=== PATIENT | female | born 1980 | race African-American/Black ===

== ENCOUNTER → 2018-11-11 | Outpatient (REF) | payer OTHER ==
[~2018-11-11] MED LIST: OMEP40CA2 PO
[2018-11-11 20:23] LABS: BASO % 0.5 % (0.0-1.0); EOS # 0.1 10^3/uL (0.0-0.50); EOS % 1.3 % (0.0-3.0); HEMATOCRIT 44.8 % (36.0-47.0); HEMOGLOBIN 14.9 g/dl (12.0-15.5); LYMPH # 1.7 10^3/uL (1.5-4.5); LYMPH % 21.1 % (24.0-44.0); MEAN CORPUSCULAR HEMOGLOBIN 32.1 pg (27.0-33.0); MEAN CORPUSCULAR HGB CONC 33.3 g/dl (32.0-36.5); MEAN CORPUSCULAR VOLUME 96.6 fl (80.0-96.0); MONO # 0.6 10^3/uL (0.0-0.8); MONO % 7.4 % (0.0-5.0); NEUTROPHILS # 5.4 10^3/uL (1.8-7.7); NEUTROPHILS % 69.4 % (36.0-66.0); PLATELET COUNT, AUTOMATED 228 10^3/uL (150-450); RED BLOOD COUNT 4.64 10^6/uL (4.00-5.40); WHITE BLOOD COUNT 7.8 10^3/uL (4.0-10.0)
[2018-11-11 20:24] LABS: ALBUMIN 3.5 GM/DL (3.2-5.2); ALT/SGPT 40 U/L (12-78); AMYLASE 21 U/L (25-115); BILIRUBIN,TOTAL 0.3 MG/DL (0.2-1.0); BLOOD UREA NITROGEN 10 MG/DL (7-18); CALCIUM LEVEL 8.5 MG/DL (8.5-10.1); CARBON DIOXIDE LEVEL 28 MEQ/L (21-32); CHLORIDE LEVEL 106 MEQ/L (98-107); CREATININE FOR GFR 0.84 MG/DL (0.55-1.30); GLOMERULAR FILTRATION RATE > 60.0 (>60); GLUCOSE, FASTING 85 MG/DL (70-100); LIPASE 96 U/L (73-393); POTASSIUM SERUM 3.6 MEQ/L (3.5-5.1); SODIUM LEVEL 141 MEQ/L (136-145); TOTAL PROTEIN 6.9 GM/DL (6.4-8.2)
== END ==
LOC: M SFHCLERA 16:06
PROVIDERS: ATTEND Physician Assistant
DX: J11.2 Influenza due to unidentified influenza virus with gastrointestinal manifestations (principal); J02.9 Acute pharyngitis, unspecified; R19.7 Diarrhea, unspecified

== ENCOUNTER 2018-11-12 11:59 | Emergency (ER) | payer OTHER ==
[~2018-11-12] VITALS: Ht 167.6 cm; Wt 83.5 kg
[2018-11-12 12:27] LABS: BASO % 0.3 % (0.0-1.0); EOS # 0.1 10^3/uL (0.0-0.50); EOS % 1.1 % (0.0-3.0); HEMATOCRIT 44.5 % (36.0-47.0); HEMOGLOBIN 15.2 g/dl (12.0-15.5); LYMPH # 1.2 10^3/uL (1.5-4.5); LYMPH % 19.1 % (24.0-44.0); MEAN CORPUSCULAR HEMOGLOBIN 31.4 pg (27.0-33.0); MEAN CORPUSCULAR HGB CONC 34.2 g/dl (32.0-36.5); MEAN CORPUSCULAR VOLUME 91.9 fl (80.0-96.0); MONO # 0.5 10^3/uL (0.0-0.8); MONO % 8.2 % (0.0-5.0); NEUTROPHILS # 4.4 10^3/uL (1.8-7.7); NEUTROPHILS % 71.1 % (36.0-66.0); PLATELET COUNT, AUTOMATED 231 10^3/uL (150-450); RED BLOOD COUNT 4.84 10^6/uL (4.00-5.40); WHITE BLOOD COUNT 6.2 10^3/uL (4.0-10.0)
[2018-11-12 12:58] LABS: ALBUMIN 3.6 GM/DL (3.2-5.2); ALT/SGPT 42 U/L (12-78); BILIRUBIN,DIRECT 0.2 MG/DL (0.0-0.2); BILIRUBIN,TOTAL 0.6 MG/DL (0.2-1.0); BLOOD UREA NITROGEN 9 MG/DL (7-18); CALCIUM LEVEL 8.8 MG/DL (8.5-10.1); CARBON DIOXIDE LEVEL 26 MEQ/L (21-32); CHLORIDE LEVEL 108 MEQ/L (98-107); CREATININE FOR GFR 0.82 MG/DL (0.55-1.30); GLOMERULAR FILTRATION RATE > 60.0 (>60); GLUCOSE, FASTING 123 MG/DL (70-100); LIPASE 94 U/L (73-393); POTASSIUM SERUM 3.7 MEQ/L (3.5-5.1); SODIUM LEVEL 143 MEQ/L (136-145); TOTAL PROTEIN 7.4 GM/DL (6.4-8.2)
[2018-11-12] MEDS ORDERED: ONDANSETRON 4 MG ORAL DISINTEGRATING TAB (Q0162 PER 1MG) PO ONE (13:30)
[2018-11-12 15:06] VITALS: BP 123/80
[2018-11-12] MEDS ORDERED: OMEP40CA2 PO (15:08)
--- NOTE | 2018-11-12 15:28 | REP ---
Abdomen flat upright PA chest three views History: Abdominal pain A small amount of air is present in the intestine. There are no air-fluid levels or dilated loops of intestine. There is no pneumoperitoneum. The lungs are clear. Impression: Nonspecific bowel gas pattern. Electronically Signed by Martín Ibarra MD 11/12/2018 03:19 P
== END 2018-11-12 15:16 | disposition home or self-care (01) ==
LOC: M ED 11:59
DX: K29.20 Alcoholic gastritis without bleeding (principal); E28.2 Polycystic ovarian syndrome; K21.9 Gastro-esophageal reflux disease without esophagitis; Z79.899 Other long term (current) drug therapy; F17.210 Nicotine dependence, cigarettes, uncomplicated
CPT/HCPCS: 36415; 74021; 80048; 80076; 83690; 84702; 85025; 99283; Q0162

== ENCOUNTER → 2020-05-25 | Outpatient (CLI) | payer OTHER ==
[~2020-05-25] MED LIST changes: -OMEP40CA2 PO; +OMEP40CA97 PO
--- NOTE | 2020-05-25 15:53 | REPVR ---
PROCEDURE INFORMATION: Exam: MR Lumbar Spine Without Contrast. Exam date and time: 05/25/2020 1:54 PM Age: 40 years old Clinical indication: Low back pain. TECHNIQUE: Imaging protocol: Multiplanar magnetic resonance images of the lumbar spine without intravenous contrast. COMPARISON: No relevant prior studies available. FINDINGS: Vertebrae: Unremarkable. Spinal cord: Normal signal. No cord compression. L1-L2: There is disc space narrowing and desiccation. There are moderate degenerative end plate changes at this level. There is mild disc bulging. There is mild bilateral neuroforaminal narrowing. L2-L3: There is mild disc bulging. There is facet arthropathy and ligamentum flavum hypertrophy. L3-L4: There is minimal retrolisthesis at L3/4. There is mild disc bulging. There is a superimposed right foraminal disc herniation. There is moderate/severe right-sided neuroforaminal narrowing with compromise of the exiting right L3 nerve root. L4-L5: There is degenerative disc disease including disc space narrowing and dessication. There is mild disc bulging. Disc bulging extends into both neural foramen causing mild bilateral neural foraminal narrowing. There is facet arthropathy and ligamentum flavum hypertrophy. There is mild spinal canal stenosis. L5-S1: No significant disc disease. No significant spinal canal stenosis. No neural foraminal stenosis. Soft tissues: Unremarkable. IMPRESSION: Right foraminal disc herniation at L3/4. Please see details above. Electronically signed by: Blaine Doll On 05/25/2020 15:53:28 PM
== END ==
LOC: M RAD 13:51
PROVIDERS: ATTEND Pain Medicine Interventional Pain Medicine
DX: M51.26 Other intervertebral disc displacement, lumbar region (principal); M51.37 Other intervertebral disc degeneration, lumbosacral region

== ENCOUNTER → 2021-05-08 | Outpatient (CLI) | payer OTHER ==
[~2021-05-08] MED LIST changes: +OMEP40CA4 PO; -OMEP40CA97 PO
== END ==
LOC: M PAIN 08:30
PROVIDERS: ATTEND Anesthesiology
DX: M54.50 Low back pain, unspecified (principal); G89.29 Other chronic pain; F17.210 Nicotine dependence, cigarettes, uncomplicated; Z79.899 Other long term (current) drug therapy

== ENCOUNTER 2021-05-20 10:38 | Emergency (ER) | payer OTHER ==
[~2021-05-20] VITALS: Ht 167.6 cm; Wt 87.9 kg
--- OUTSIDE RECORDS SUMMARY | 2021-05-20 10:45 | CCD ---
Author Author [employer] Organization [employer] Address Unknown Phone Unavailable Care Team Providers Care Machine Iii Coremaker Name Role Phone ScottEliana calhouna Unavailable PROBLEMS Type Condition ICD9-CM Code ILL35-PF Code Onset Dates Condition S tatus W/U Status Risk SNOMED Code Notes Problem Other chronic pain G89.29 Active confirmed 8 [id number] ALLERGIES No Known Allergies ENCOUNTERS from 1981 to 2021-05-14 Encounter Location Date Provider Diagnosis [facility] [address] [phone] [place] [address] May, Chandrika Chavez IMMUNIZATIONS Vaccine Route Administration Date Status Influenza 6mo & up Fluzone Unknown October 31, 2016 Other s Influenza 6mo & up Fluzone Unknown Jul 05, 2015 Other s SOCIAL HISTORY Tobacco Use: Social History Observation Description Date Details (start date - stop date) Current Smoker Sex Assigned At : Social History Observation Description Sex Assigned At Unknown Tobacco Use: Question Answer Notes Are you a: current smoker Patient counseled on the dangers of tobacco use and urged to quit: 04/30/2021 How many cigarettes a day do you smoke? 6-10 Are you interested in quitting? Thinking about quitting REASON FOR REFERRAL No Information VITAL SIGNS No information MEDICATIONS Medication SIG (Take, Route, Frequency, Duration) Notes Start Da te End Date Status Cyclobenzaprine HCl 5 MG 1 tablet at bedtime as neede d Orally Once a day for 30 day(s) Not-Taking Provera 10 MG 1 tablet with food Orally Once a day for 30 day(s) Not-Taking Multi For Her - 1 cap Orally every 4 hours as needed Active Phentermine HCl 37.5 MG 1 capsule Orally Once a day Not-Taking hydrOXYzine HCl 10 MG as directed Orally Not-Taking Gabapentin 100 MG 1 capsule Orally Once a day for 30 day(s) Not-Taking Zofran ODT 4 MG 1 tablet on the tongue and a llow to dissolve Orally every 8 hrs prn for 4 days Nov, Unknown Ibuprofen 800 MG 1 tablet Orally four times daily take wi th food for 30 day(s) Mar, Unknown Amoxicillin 875 MG 1 tablet Orally every 12 hrs for 10 day(s) October, Unknown traMADol HCl 50 MG 1 tablet as needed Orally Once a day Not-Taking PROCEDURES No Information RESULTS No Results REASON FOR VISIT physical therapy referral MEDICAL (GENERAL) HISTORY Type Description Date Medical History DDD Medical History Tobacco user Medical History Polycystic Ovary Syndrome Medical History Female Infertility of Anovylatory origin Medical History Chronic Pain Syndrome Medical History Abnormal Liver Function test Medical History Obestity Surgical History No Surgical history information Hospitalization History Kidney infection age 6 Goals Section No Information Health Concerns No Information MEDICAL EQUIPMENT No Information MENTAL STATUS No Information FUNCTIONAL STATUS No Information ASSESSMENTS No Information PLAN OF TREATMENT Next Appt Details Provider Name:Norman Medina, 2021-07-31 11:15:00 AM, [address], , [place], [address], Insurance Providers Payer Name Payer Address Payer Phone Insured Name Patient Relati onship to Insured Coverage Start Date Coverage End Date [facility] COMMUNITY PLAN [facility] [address] [facility] [phone] SUDHIR FOSTER self
--- OUTSIDE RECORDS SUMMARY | 2021-05-20 10:45 | CCD ---
Author Author [employer] Organization [employer] Address Unknown Phone Unavailable Care Team Providers Care Network Strategist Name Role Phone ScottEliana calhouna Unavailable PROBLEMS Type Condition ICD9-CM Code [id number] Code Onset Dates Condition S tatus W/U Status Risk SNOMED Code Notes Problem Other chronic pain G89.29 Active confirmed 8 [id number] ALLERGIES No Known Allergies ENCOUNTERS from 1981 to 2021-05-09 Encounter Location Date Provider Diagnosis [facility] [address] [phone] [place] [address] May, Chandrika Chavez IMMUNIZATIONS Vaccine Route Administration [...] Information RESULTS No Results REASON FOR VISIT Doctor to Doctor Agreement MEDICAL (GENERAL) HISTORY Type Description Date Medical [...] Provider Name:Norman Medina, 2021-07-31 11:15:00 AM, [address], , [place], [address], Insurance Providers Payer Name Payer Address Payer Phone Insured Name Patient Relati onship to Insured Coverage Start Date Coverage End Date [facility] COMMUNITY PLAN [facility] [address] [facility] [phone] SUDHIR FOSTER self
--- OUTSIDE RECORDS SUMMARY | 2021-05-20 10:45 | CCD ---
Author Author [employer] Organization [employer] Address Unknown Phone Unavailable Care Team Providers Care Chiller Hand Name Role Phone ScottEliana calhouna Unavailable PROBLEMS Type Condition ICD9-CM Code CRW52-NP Code Onset Dates Condition S tatus W/U Status Risk SNOMED Code Notes Problem Other chronic pain G89.29 Active confirmed 8 [id number] ALLERGIES No Known Allergies ENCOUNTERS from 1981 to 2021-05-10 Encounter Location Date Provider Diagnosis [facility] [address] [phone] [place] [address] May, Chandrika Chavez IMMUNIZATIONS Vaccine Route Administration [...] Information RESULTS No Results REASON FOR VISIT Physical therapy MEDICAL (GENERAL) HISTORY Type Description Date Medical [...] Provider Name:Norman Medina, 2021-07-31 11:15:00 AM, [address], , [place], [address], Insurance Providers Payer Name Payer Address Payer Phone Insured Name Patient Relati onship to Insured Coverage Start Date Coverage End Date [facility] COMMUNITY PLAN [facility] [address] [facility] [phone] SUDHIR FOSTER self
--- OUTSIDE RECORDS SUMMARY | 2021-05-20 10:46 | CCD ---
Author Author [facility] Organization [facility] Address Unknown Phone Unavailable Care Team Providers Care Inventory Clerk Name Role Phone Nathalie Mueller MD Unavailable Unavailable Nathalie Mueller MD Unavailable Unavailable Nathalie Mueller MD Unavailable Unavailable Nathalie Mueller MD Unavailable Unavailable Nathalie Mueller MD Unavailable Unavailable Nathalie Mueller MD Unavailable Unavailable Nathalie Mueller MD Unavailable Unavailable Nathalie Mueller MD Unavailable Unavailable Nathalie Mueller MD Unavailable Unavailable Nathalie Mueller MD Unavailable Unavailable Nathalie Mueller MD Unavailable Unavailable Nathalie Mueller MD Unavailable Unavailable Nathalie Mueller MD Unavailable Unavailable Nathalie Mueller MD Unavailable Unavailable Nathalie Mueller MD Unavailable Unavailable Nathalie Mueller MD Unavailable Unavailable Nathalie Mueller MD Unavailable Unavailable Nathalie Mueller MD Unavailable Unavailable Nathalie Mueller MD Unavailable Unavailable Nathalie Mueller MD Unavailable Unavailable Nathalie Mueller MD Unavailable Unavailable Nathalie Mueller MD Unavailable Unavailable Bolla, S Nteo BOND Unavailable Unavailable Bolla, S Neto BOND Unavailable Unavailable Bolla, S Neto BOND Unavailable Unavailable Bolla, S Neto BOND Unavailable Unavailable Bolla, S Neto BOND Unavailable Unavailable Bolla, S Neto BOND Unavailable Unavailable Bolla, S Neto BOND Unavailable Unavailable Bolla, S Neto BOND Unavailable Unavailable Bolla, S Neto BOND Unavailable Unavailable Bolla, S Neto BOND Unavailable Unavailable Bolla, S Neto BOND Unavailable Unavailable Bolla, S Neto BOND Unavailable Unavailable Bolla, S Neto BOND Unavailable Unavailable Bolla, S Neto BOND Unavailable Unavailable Bolla, S Neto BOND Unavailable Unavailable Bolla, S Neto BOND Unavailable Unavailable Bolla, S Neto BOND Unavailable Unavailable Bolla, S Neto BOND Unavailable Unavailable Bolla, S Neto BOND Unavailable Unavailable Bolla, S Neto BOND Unavailable Unavailable Bolla, S Neto BOND Unavailable Unavailable Bolla, S Neto OBND Unavailable Unavailable Bolla, S Neto BOND Unavailable Unavailable Bolla, S Neto BOND Unavailable Unavailable Bolla, S Neto BOND Unavailable Unavailable Bolla, S Neto BOND Unavailable Unavailable Bolla, S Neto BOND Unavailable Unavailable MARY MCKEON MD Unavailable Unavailable MARY MCKEON MD Unavailable Unavailable MARY MCKEON MD Unavailable Unavailable MARY MCKEON MD Unavailable Unavailable MARY MCKEON MD Unavailable Unavailable MARY MCKEON MD Unavailable Unavailable MARY MCKEON MD Unavailable Unavailable MARY MCKEON MD Unavailable Unavailable MARY MCKEON MD Unavailable Unavailable MARY MCKEON MD Unavailable Unavailable MARY MCKEON MD Unavailable Unavailable MARY MCKEON MD Unavailable Unavailable MARY MCKEON MD Unavailable Unavailable MARY MCKEON MD Unavailable Unavailable MARY MCKEON MD Unavailable Unavailable MARY MCKEON MD Unavailable Unavailable MARY MCKEON MD Unavailable Unavailable MARY MCKEON MD Unavailable Unavailable MARY MCKEON MD Unavailable Unavailable MARY MCKEON MD Unavailable Unavailable MARY MCKEON MD Unavailable Unavailable MARY MCKEON MD Unavailable Unavailable MARY MCKEON MD Unavailable Unavailable MARY MCKEON MD Unavailable Unavailable MARY MCKEON MD Unavailable Unavailable MARY MCKEON MD Unavailable Unavailable MARY MCKEON MD Unavailable Unavailable MARY MCKEON MD Unavailable Unavailable MCKEON, MARY MD Unavailable Unavailable MCKEON, MARY MD Unavailable Unavailable MCKEON, MARY MD Unavailable Unavailable MCKEON, MARY MD Unavailable Unavailable MCKEON, MARY MD Unavailable Unavailable MCKEON, MARY MD Unavailable Unavailable MCKEON, MARY MD Unavailable Unavailable MCKEON, MARY MD Unavailable Unavailable MCKEON, MARY MD Unavailable Unavailable MCKEON, MARY MD Unavailable Unavailable MCKEON, MARY MD Unavailable Unavailable MCKEON, MARY MD Unavailable Unavailable MCKEON, MARY MD Unavailable Unavailable MCKEON, MARY MD Unavailable Unavailable MCKEON, MARY MD Unavailable Unavailable MCKEON, MARY MD Unavailable Unavailable MCKEON, MARY MD Unavailable Unavailable MCKEON, MARY MD Unavailable Unavailable MCKEON, MARY MD Unavailable Unavailable MCKEON, MARY MD Unavailable Unavailable MCKEON, MARY MD Unavailable Unavailable MCKEON, MARY MD Unavailable Unavailable MCKENO, MARY MD Unavailable Unavailable MCKEON, MARY MD Unavailable Unavailable MCKEON, MARY MD Unavailable Unavailable MCKEON, MARY MD Unavailable Unavailable MCKEON, MARY MD Unavailable Unavailable MCKEON, MARY MD Unavailable Unavailable MCKEON, MARY MD Unavailable Unavailable MCKEON, MARY MD Unavailable Unavailable MCKEON, MARY MD Unavailable Unavailable MCKEON, MARY MD Unavailable Unavailable MCKEON, MARY MD Unavailable Unavailable MCKEON, MARY MD Unavailable Unavailable MCKEON, MARY MD Unavailable Unavailable MCEKON, MARY MD Unavailable Unavailable MCKEON, MARY MD Unavailable Unavailable MCKEON, MARY MD Unavailable Unavailable MCKEON, MARY MD Unavailable Unavailable MCKEON, MARY MD Unavailable Unavailable MCKEON, MARY MD Unavailable Unavailable MCKEON, MARY MD Unavailable Unavailable MCKEON, MARY MD Unavailable Unavailable MCKEON, MARY MD Unavailable Unavailable MCKEON, MARY MD Unavailable Unavailable MCKEON, MARY MD Unavailable Unavailable MCKEON, MARY MD Unavailable Unavailable MCKEON, MARY MD Unavailable Unavailable MCKEON, MARY MD Unavailable Unavailable MCKEON, MARY MD Unavailable Unavailable MCKEON, MARY MD Unavailable Unavailable MCKEON, MARY MD Unavailable Unavailable MCKEON, MARY MD Unavailable Unavailable MCKEON, MAYR MD Unavailable Unavailable MCKEON, MARY MD Unavailable Unavailable MCKEON, MARY MD Unavailable Unavailable MCKEON, MARY MD Unavailable Unavailable MCKEON, MARY MD Unavailable Unavailable MCKEON, MARY MD Unavailable Unavailable MCKEON, MARY MD Unavailable Unavailable MCKEON, MARY MD Unavailable Unavailable MCKEON, MARY MD Unavailable Unavailable MCKEON, MARY MD Unavailable Unavailable MCKEON, MARY MD Unavailable Unavailable MCKEON, MARY MD Unavailable Unavailable MCKEON, MARY MD Unavailable Unavailable MCKEON, MARY MD Unavailable Unavailable MCKEON, MARY MD Unavailable Unavailable MCKEON, MARY MD Unavailable Unavailable MCKEON, MARY MD Unavailable Unavailable MCKEON, MARY MD Unavailable Unavailable MCKEON, MARY MD Unavailable Unavailable MCKEON, MARY MD Unavailable Unavailable MCKEON, MARY MD Unavailable Unavailable MCKEON, MARY MD Unavailable Unavailable MCKEON, MARY MD Unavailable Unavailable MCKEON, MARY MD Unavailable Unavailable MCKEON, MARY MD Unavailable Unavailable MCKEON, MARY MD Unavailable Unavailable MCKEON, MARY MD Unavailable Unavailable MCKEON, MARY MD Unavailable Unavailable MCKEON, MARY MD Unavailable Unavailable MCKEON, MARY MD Unavailable Unavailable MCKEON, MARY MD Unavailable Unavailable MCKEON, MARY MD Unavailable Unavailable MCKEON, MARY MD Unavailable Unavailable MCKEON, MARY MD Unavailable Unavailable MCKEON, MARY MD Unavailable Unavailable MCKEON, MARY MD Unavailable Unavailable MCKEON, MARY MD Unavailable Unavailable MCKEON, MARY MD Unavailable Unavailable MCKEON, MARY MD Unavailable Unavailable MCKEON, MARY MD Unavailable Unavailable MCKEON, MARY MD Unavailable Unavailable MCKEON, MARY MD Unavailable Unavailable MCKEON, MARY MD Unavailable Unavailable MCKEON, MARY MD Unavailable Unavailable MCKEON, MARY MD Unavailable Unavailable MCKEON, MARY MD Unavailable Unavailable MCKEON, MARY MD Unavailable Unavailable MCKEON, MARY MD Unavailable Unavailable MCKEON, MARY MD Unavailable Unavailable MCKEON, MARY MD Unavailable Unavailable MCKEON, MARY MD Unavailable Unavailable MCKEON, MARY MD Unavailable Unavailable MCKEON, MARY MD Unavailable Unavailable MCKEON, MARY MD Unavailable Unavailable MCKEON, MARY MD Unavailable Unavailable MCKEON, MARY MD Unavailable Unavailable MCKEON, MARY MD Unavailable Unavailable MCKEON, MARY MD Unavailable Unavailable MCKEON, MARY MD Unavailable Unavailable MCKEON, MARY MD Unavailable Unavailable MCKEON, MARY MD Unavailable Unavailable MCKEON, MARY MD Unavailable Unavailable MCKEON, MARY MD Unavailable Unavailable Re-disclosure Warning The records that you are about to access may contain information from federally-assisted alcohol or drug abuse programs. If such information is present, then the following federally mandated warning applies: This information has been disclosed to you from records protected by federal confidentiality rules (42 CFR part 2). The federal rules prohibit you from making any further disclosure of this information unless further disclosure is expressly permitted by the written consent of the person to whom it pertains or as otherwise permitted by 42 CFR part 2. A general authorization for the release of medical or other information is NOT sufficient for this purpose. The Federal rules restrict any use of the information to criminally investigate or prosecute any alcohol or drug abuse patient.The records that you are about to access may contain highly sensitive health information, the redisclosure of which is protected by Article 27-F of the [facility] Public Health law. If you continue you may have access to information: Regarding HIV / AIDS; Provided by facilities licensed or operated by the [facility] Office of Mental Health; or Provided by the [facility] Office for People With Developmental Disabilities. If such information is present, then the following [facility] mandated warning applies: This information has been disclosed to you from confidential records which are protected by state law. State law prohibits you from making any further disclosure of this information without the specific written consent of the person to whom it pertains, or as otherwise permitted by law. Any unauthorized further disclosure in violation of state law may result in a fine or correction sentence or both. A general authorization for the release of medical or other information is NOT sufficient authorization for further disc losure. Allergies and Adverse Reactions Type Description Substance Reaction Status Data Source(s ) No Known Drug Allergies No Known Drug Allergies [facility] Family History Family Member Name Family Member Gender Family Member Status Date o f Status Description Data Source(s) Unknown Female Problem [facility] ([facility]) Encounters Encounter Providers Location Date Indications Data Source(s ) Unknown [address] [facility] [address] 05/10/2021 12:00:00 AM EST eCW1 ([facility]) [place] [address] [facility] [place] [address] 05/09/2021 12:00:00 AM EST eCW1 ([facility]) Unknown [address] [facility] [address] 05/09/2021 12:00:00 AM EST eCW1 ([facility]) Outpatient Attender: MARY MCKEON MDConsultant: MARY Oneill MD 07/25/2020 10:32:00 AM EST - 07/25/2020 10:32:00 AM EST [facility] Outpatient Attender: MARY MCKEON MD Family Practice 07/25/2020 0 9:20:00 AM EST [facility] ([facility] [place]) Outpatient Attender: MARY MCKEON MDConsultant: MARY Oneill MD 06/19/2020 03:15:00 PM EST - 06/19/2020 03:15:00 PM EST [facility] Neto Mueller MD: [id number] [address], [facility] [place] [address], Ph. Attender: Neto Mueller MD MA - [facility] - Main Office 04/16/2020 12:00:00 AM EST [facility] ([facility]) Medications Medication Brand Name Start Date Product Form Dose Route Admi nistrative Instructions Pharmacy Instructions Status Indications Reaction Description Data Source(s) 50 mg 11/22/2020 12:00:00 AM EDT tablet 30 TAKE ONE TABLET BY MOUTH TWICE A DAY NEEDED FOR PAIN MAXIMUM DAILY DOSE = 2 TAKE ONE TABLET BY MOUTH TWICE A DAY NEEDED FOR PAIN MAXIMUM DAILY DOSE = 2 SOLD: 11/22/2020 [facility] 50 mg 07/25/2020 12:00:00 AM EST tablet 30 TAKE ONE TABLET BY MOUTH TWICE A DAY NEEDED FOR PAIN - MAXIMUM DAILY DOSE = 2 TAKE ONE TABLET BY MOUTH TWICE A DAY NEEDED FOR PAIN - MAXIMUM DAILY DOSE = 2 SOLD: 08/01/2020 [facility] Cyclobenzaprine hydrochloride 5 MG Oral Tablet Cyclobenzapri ne HCL 07/25/2020 12:00:00 AM EST ORAL active M EDENT ([facility] [place]) Cyclobenzaprine hydrochloride 5 MG Oral Tablet CYCLOBENZAPRI NE HCL 07/25/2020 12:00:00 AM EST tablet 30 TAKE ONE TABLET BY MOUTH EVERY 8 HOURS NEEDED TAKE ONE TABLET BY MOUTH EVERY 8 HOURS NEEDED SOLD: 08/01/2020 [facility] 50 mg 06/19/2020 12:00:00 AM EST tablet 14 TAKE ONE TABLET BY MOUTH TWICE A DAY NEEDED FOR PAIN MAXIMUM DAILY DOSE = 2 TAKE ONE TABLET BY MOUTH TWICE A DAY NEEDED FOR PAIN MAXIMUM DAILY DOSE = 2 SOLD: 06/19/2020 [facility] 50 mg 06/19/2020 12:00:00 AM EST tablet 14 TAKE ONE TABLET BY MOUTH TWICE A DAY NEEDED FOR PAIN MAXIMUM DAILY DOSE = 2 TAKE ONE TABLET BY MOUTH TWICE A DAY NEEDED FOR PAIN MAXIMUM DAILY DOSE = 2 SOLD: 07/04/2020 [facility] gabapentin 100 MG Oral Capsule Gabapentin 06/19/2020 12:00:00 AM EST ORAL completed [facility] ([facility]) 100 mg 06/19/2020 12:00:00 AM EST capsule 180 TAKE ONE CAPSULE BY MOUTH EVERY 8 HOURS MAY GO UP TO TAKE THREE CAPSULES BY MOUTH THREE TIMES A DAY MAXIMUM DAILY DOSE = 6 TAKE ONE CAPSULE BY MOUTH EVERY 8 HOURS MAY GO UP TO TAKE THREE CAPSULES BY MOUTH THREE TIMES A DAY MAXIMUM DAILY DOSE = 6 SOLD: 06/19/2020 [facility] Hydroxyzine Hydrochloride 10 MG Oral Tab let hydroxyzine HCl 10 mg tablet Take 1 tablet every 6 hours by oral route as needed. hydroxyzine HCl 10 mg tablet Take 1 tablet every 6 hours by oral route as needed. 1 completed hydroxyzine hydrochloride 10 MG Oral Tablet [facility] ([facility]) Phentermine Hydrochloride 37.5 MG Oral C apsule phentermine 37.5 mg capsule Take 1 capsule every day by oral route. phentermine 37.5 mg capsule Take 1 capsu le every day by oral route. 1 capsule(s) complet ed phentermine hydrochloride 37.5 MG Oral Capsule [facility] ([facility]) Amoxicillin 500 MG Oral Capsule amoxicillin 500 mg cap krystyna amoxicillin 500 mg capsule completed amoxicillin 50 0 MG Oral Capsule [facility] ([facility]) Ibuprofen 600 MG Oral Tablet ibuprofen 600 mg tablet ibuprofen 6 00 mg tablet completed ibuprofen 600 MG Oral Tablet [facility] ([facility]) Escitalopram 10 MG Oral Tablet [Lexapro] Lexapro 10 mg tablet Take 1 tablet every day by oral route. Lexapro 10 mg tablet Take 1 tablet every day by oral route. 1 completed escitalopram 10 MG Oral Tablet [Lexapro] [facility] ([facility]) chlorhexidine gluconate 1.2 MG/ML Mouthw [place] chlorhexidine gluconate 0.12 % mouthwash chlorhexidine gluconate 0.12 % mouthwash completed chlorhexidine gluconate 1.2 MG/ML Mouthwash [facility] ([facility]) Insurance Providers Payer name Policy type / Coverage type Policy ID Covered constitution party ID Covered constitution party's relationship to anton Policy Anton Plan Information [employer] COMMUNITY PLAN [facility] [place] [id number] SP [id number] [facility] COMMUNTY PLAN [id number] [employer] COMMUNITY PLAN XIX [id number] 18 [id number] [facility] O [id number] S [id number] [employer] COMMUNITY PLAN [facility] [place] [id number] SP [id number] ANSI-Medicaid [id number] [employer] Commun[facility] Plan Medicaid [id number] Self [id number] [employer] Medicaid [id number] Self [id number] [employer] Medicaid [id number] Self [id number] HC COMMUNITY PLAN [id number] 18 [id number] [employer] Medicaid [id number] Self [id number] [employer] [facility] [employer] [employer] Medicaid [id number] [id number] Self [id number] [facility] [employer] [employer] Medicaid [id number] 0.3800.0 Self [id number] [facility] [employer] [employer] Medicaid [id number] 0.3800.0 Self [id number] [employer] Community Plan Medicaid [id number] Self [id number] [facility] Community Plan Medicaid [id number] Self [id number] [facility] Community Plan Medicaid 1680 Self [employer] AMERICHOICE XIX O [id number] 18 [id number] MEDICAID [id number] SP [id number] MEDICAID-PHYSICIAN [id number] [employer] AMERICHOICE XIX O [id number] 18 [id number] MEDICAID - CLINIC [id number] Problems, Conditions, and Diagnoses Code Display Name Description Problem Type Effective Dates Data Source(s) Z1389 Encounter for screening for other disord er Encounter for screening for other disorder Diagnosis 06/19/2020 03:15:00 PM [facility] N946 Dysmenorrhea, unspecified Dysmenorrhea, unspecified Di agnosis 06/19/2020 03:15:00 PM [facility] E282 Polycystic ovarian syndrome Polycystic ovarian syndrom e Diagnosis 06/19/2020 03:15:00 PM [facility] G894 Chronic pain syndrome Chronic pain syndrome Diagnosis 06/19/2020 03:15:00 PM [facility] 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 [place]) Surgeries/Procedures Procedure Description Date Indications Data Source(s) Brief Emotional/Behav Assessment W/ Scoring Doc Per Standard Inst 06/19/2020 12:00:00 AM EST [facility] ([facility]) MRI, lumbar spine, w/o contrast 04/16/2020 12:00:00 AM EST [facility] ([facility]) Results ID Date Data Source [id number] 07/25/2020 11:06:00 AM EST [facility] ([facility]) Name Value Range Interpretation Code Description Data [facility]isse rce(s) Supporting Document(s) C reactive protein [Mass/volume] in Serum or Plasma by High sensitivity method 1.67 mg/L 1.00-3.00 [facility] ([facility]) Is patient fasting? N Thyrotropin [Units/volume] in Serum or Plasma 1.21 uIU/mL 0.47-5.01 [facility] ([facility] [place]) Is patient fasting? N ID Date Data Source [id number] 07/25/2020 11:06:00 AM EST [facility] ([facility]) Name Value Range Interpretation Code Description Data [facility] rce(s) Supporting Document(s) Sed Rate Reenter 4 MED[facility] ([facility]) Is patient fasting? N Sed Rate 4 mm/hr 0-20 [facility] ([facility]) Is patient fasting? N ID Date Data Source [id number] 07/25/2020 11:06:00 AM EST [facility] ([facility]) Name Value Range Interpretation Code Description [facility](s) Comprehensive Metabo Laboratory test result [facility] ([facility] [place]) Is patient fasting? N Sodium 140 meq/L 134-153 [facility] ([facility]) Is patient fasting? N Chloride 102 meq/L 98-107 [facility] ([facility]) Is patient fasting? N Potassium 4.1 meq/L 3.6-5.0 [facility] ([facility]) Is patient fasting? N BUN 13 mg/dL 7-21 [facility] ([facility]) Is patient fasting? N Glucose 89 mg/dL 70-99 [facility] ([facility]) Is patient fasting? N Co2 25 meq/L 22-30 [facility] ([facility]) Is patient fasting? N Creatinine 0.6 mg/dL 0.7-1.5 Below low normal [facility] ( [facility] [place]) Is patient fasting? N BUN/Creat 22 8-27 [facility] ([facility]) Is patient fasting? N Albumin 4.5 g/dL 3.9-5.0 [facility] ([facility]) Is patient fasting? N Total Protein 7.6 g/dL 6.3-8.2 [facility] [place] Is patient fasting? N Globulin 3.1 GM/DL 2.4-3.2 [facility] ([facility]) Is patient fasting? N A/G Ratio 1.5 0.8-2.0 [facility] ([facility]) Is patient fasting? N Calcium 9.3 mg/dL 8.4-10.2 [facility] ([facility]) Is patient fasting? N Alkaline Phos 115 U/L 38-126 [facility] ([facility] [place]) Is patient fasting? N Total Bili Laboratory test result 0.2-1.3 [facility] ([facility] [place]) Is patient fasting? N Sgot/Ast 44 U/L 5-40 Above high normal [facility] [place] Is patient fasting? N SGPT/Alt 34 U/L 7-[address] [facility] [facility] ([facility]) Is patient fasting? N Anion Gap 13.0 mmol/L 8.0-16.0 [facility] ([facility]) Is patient fasting? N Non-Aa GFR Laboratory test result [facility] ([facility] [place]) Is patient fasting? N Age 40 [facility] Is patient fasting? N Afr Amer GFR Laboratory test result [facility] ([facility] [place]) Is patient fasting? N ID Date Data Source [id number] 07/25/2020 11:06:00 AM EST MED[facility] ([facility]) Name Value Range Interpretation Code Description Data [facility] rce(s) Supporting Document(s) CBC W/Automated Diff Laboratory test result [facility] ([facility] [place]) Is patient fasting? N WBC 7.5 10^3/uL 4.2-11.0 [facility] ([facility]) Is patient fasting? N RBC 4.58 10^6/uL 4.20-5.40 [facility] ([facility] [place]) Is patient fasting? N Hemoglobin 14.4 g/dL 12.0-16.0 [facility] ([facility]) Is patient fasting? N Hematocrit 42.9 % 37.0-47.0 [facility] ([facility]) Is patient fasting? N MCV 93.7 fL 81.0-101 [facility] ([facility]) Is patient fasting? N MCH 31.4 pg 27.0-34.0 [facility] ([facility]) Is patient fasting? N MCHC 33.6 g/dL 31.0-36.0 [facility] ([facility]) Is patient fasting? N RDW 13.2 % 11.5-14.5 [facility] ([facility]) Is patient fasting? N Platelets 261 10^3/uL 150-450 [facility] ([facility]) Is patient fasting? N Neut 64.7 % 37.0-80.0 [facility] ([facility]) Is patient fasting? N MPV 11.3 fL 7.4-10.4 Above high normal [facility] ([facility] [place]) Is patient fasting? N [place] 7.1 % 3.0-8.0 [facility] ([facility]) Is patient fasting? N Lymph 26.0 % 25.0-40.0 [facility] ([facility]) Is patient fasting? N Baso 0.5 % 0.0-2.5 [facility] ([facility]) Is patient fasting? N Eos 1.3 % 0.0-7.0 [facility] ([facility]) Is patient fasting? N %NRBC 0.0 % 0.0-0.0 [facility] ([facility]) Is patient fasting? N %Ig 0.4 % 0.0-0.0 Above high normal [facility] ([facility]) Is patient fasting? N #Neut 4.83 10^3/uL 2.00-6.90 [facility] ([facility] [place]) Is patient fasting? N #Lymph 1.94 10^3/uL 0.60-3.40 [facility] ([facility] [place]) Is patient fasting? N #[place] 0.53 10^3/uL 0.00-0.90 [facility] ([facility] [place]) Is patient fasting? N #Eos 0.10 10^3/uL 0.00-0.70 [facility] ([facility] [place]) Is patient fasting? N #Ig 0.03 10^3/uL 0.00-0.10 [facility] [facility], [place]) Is patient fasting? N #Baso 0.04 10^3/uL 0.00-0.20 MED[facility] ([facility] [place]) Is patient fasting? N #NRBC 0.00 10^3/uL 0.00-0.00 [facility] ([facility] [place]) Is patient fasting? N Manual Diff Laboratory test result M EDENT ([facility] [place]) Is patient fasting? N RBC Morph Laboratory test result [facility] ([facility] [place]) Is patient fasting? N ID Date Data Source [id number] 07/25/2020 08:42:00 PM EST [facility] Name Value Range Interpretation Code Description Data Charisse rce(s) Supporting Document(s) Erythrocyte sedimentation rate by Westergren method 4 mm/hr 0 - 20 [facility] SED RATE REENTER 4 [facility] ID Date Data Source [id number] 07/25/2020 11:06:00 AM EST MED[facility] ([facility]) Name Value Range Interpretation Code Description Data Charisse rce(s) Supporting Document(s) C reactive protein [Mass/volume] in Serum or Plasma by High sensitivity method Laboratory test result MED[facility] ([facility]) Erythrocyte sedimentation rate by Westergren method Laboratory test result [facility] ([facility] [place]) Thyrotropin [Units/volume] in Serum or Plasma Laboratory test result [facility] ([facility] [place]) ID Date Data Source [id number] 07/25/2020 02:38:00 PM EST [facility] Name Value Range Interpretation Code Description Data Charisse rce(s) Supporting Document(s) COMPREHENSIVE METABOLIC PANEL [facility] COMPREHENSIVE METABOLIC PANEL Sodium [Moles/volume] in Serum or Plasma 140 mEq/L 134 - 153 [facility] Potassium [Moles/volume] in Serum or Plasma 4.1 mEq/L 3.6 - 5.0 [facility] Chloride [Moles/volume] in Serum or Plasma 102 mEq/L 98 - 107 [facility] Carbon dioxide, total [Moles/volume] in Serum or Plasma 25 MEQ/L 22 - 30 [facility] Glucose [Mass/volume] in Serum or Plasma 89 MG/DL 70 - 99 [facility] BUN 13 MG/DL 7 - 21 [facility] Creatinine [Mass/volume] in Serum or Plasma 0.6 MG/DL 0.7 - 1.5 L [facility] BUN/CREAT 22 8 - 27 [facility] Protein [Mass/volume] in Serum or Plasma 7.6 G/DL 6.3 - 8.2 [facility] Albumin [Mass/volume] in Serum or Plasma 4.5 G/DL 3.9 - 5.0 [facility] Globulin [Mass/volume] in Serum by calculation 3.1 GM/DL 2.4 - 3.2 [facility] A/G RATIO 1.5 0.8 - 2.0 [facility] Calcium [Mass/volume] in Serum or Plasma 9.3 MG/DL 8.4 - 10.2 [facility] Bilirubin.total [Mass/volume] in Serum or Plasma <0.7 MG/DL 0.2 - 1.3 [facility] Alkaline phosphatase [Enzymatic activity/volume] in Serum or Plasma 115 U/L 38 - 126 [facility] Aspartate aminotransferase [Enzymatic activity/volume] in Serum or Plasma 44 U/L 5 - 40 H [facility] Alanine aminotransferase [Enzymatic activity/volume] in Seru m or Plasma 34 U/L 7 - 56 [facility] Anion gap 3 in Serum or Plasma 13.0 mmol/L 8.0 - 16.0 [facility] AGE 40 yrs [facility] NON-AA GFR >60 mL/min [facility] ital AFR AMER GFR >60 mL/min [facility] Male GFR In terprentation 20-49 yrs >60 mL/min Normal 50-59 yrs >56 mL/min Normal 60-69 yrs >49 mL/min Normal 70-79yrs >42 mL/min Normal 80 and above >35 mL/min Normal Female GFR Interpretation 20-39 yrs >60 mL/min Normal 40-49 yrs >58 mL/min Normal 50-59 yrs >51 mL/min Normal 60-69 yrs >45 mL/min Normal 70-79 yrs >39 mL/min Normal 80 and above >32 mL/min Normal ID Date Data Source [id number] 07/25/2020 02:34:00 PM EST [facility] Name Value Range Interpretation Code Description Data Charisse rce(s) Supporting Document(s) Thyrotropin [Units/volume] in Serum or Plasma by Detec tion limit <= 0.05 mIU/L 1.21 uIU/mL 0.47 - 5.01 [facility] ID Date Data Source [id number] 07/25/2020 02:32:00 PM EST [facility] Name Value Range Interpretation Code Description Data Charisse rce(s) Supporting Document(s) C reactive protein [Mass/volume] in Serum or Plasma by High sensitivity method 1.67 MG/L 1.00 - 3.00 [facility] CDC/[facility] HS-CRP CUT-OFF: RELATIVE RISK: <1.0 mg/L Low 1.0 - 3.0 mg/L Average >3.0 mg/L High Optimally, the average of HS-CRP results repeated two weeks apart should be used for risk assessment. ID Date Data Source [id number] 07/25/2020 01:46:00 PM EST [facility] Name Value Range Interpretation Code Description Data Charisse rce(s) Supporting Document(s) CBC W/AUTOMATED DIFF [facility] COMPLETE BLOOD COUNT Leukocytes [#/volume] in Blood by Automated count 7.5 10^3/uL 4.2 - 1 1.0 [facility] Erythrocytes [#/volume] in Blood by Automated count 4.58 10^6/uL 4. 20 - 5.40 [facility] Hemoglobin [Mass/volume] in Blood 14.4 g/dL 12.0 - 16.0 [facility] Hematocrit [Volume Fraction] of Blood by Automated count 42.9 % 3 7.0 - 47.0 [facility] Erythrocyte mean corpuscular volume [Entitic volume] by Auto mated count 93.7 fL 81.0 - 101 [facility] Erythrocyte mean corpuscular hemoglobin [Entitic mass] by Automated count 31.4 pg 27.0 - 34.0 [facility] Erythrocyte mean corpuscular hemoglobin concentration [Mass/volume] by Automated count 33.6 g/dL 31.0 - 36.0 [facility] Erythrocyte distribution width [Ratio] by Automated count 13.2 % 11.5 - 14.5 [facility] Platelets [#/volume] in Blood by Automated count 261 10^3/uL 150 - 45 0 [facility] Platelet mean volume [Entitic volume] in Blood by Automated count 11.3 fL 7.4 - 10.4 H [facility] Neutrophils/100 leukocytes in Blood by Automated count 64.7 % 37. 0 - 80.0 [facility] Lymphocytes/100 leukocytes in Blood by Manual count 26.0 % 25.0 - 40.0 [facility] Monocytes/100 leukocytes in Blood by Automated count 7.1 % 3.0 - 8.0 [facility] Eosinophils/100 leukocytes in Blood by Automated count 1.3 % 0.0 - 7.0 [facility] Basophils/100 leukocytes in Blood by Automated count 0.5 % 0.0 - 2.5 [facility] %IG 0.4 % 0.0 - 0.0 [facility] 0.0 % 0.0 - 0.0 [facility] al Neutrophils [#/volume] in Blood by Automated count 4.83 10^3/uL 2.00 - 6.90 [facility] Lymphocytes [#/volume] in Blood by Automated count 1.94 10^3/uL 0.60 - 3.40 [facility] Monocytes [#/volume] in Blood by Automated count 0.53 10^3/uL 0.00 - 0.90 [facility] Eosinophils [#/volume] in Blood by Automated count 0.10 10^3/uL 0.00 - 0.70 [facility] Basophils [#/volume] in Blood by Automated count 0.04 10^3/uL 0.00 - 0.20 [facility] #IG 0.03 10^3/uL 0.00 - 0.10 [facility] #NRBC 0.00 10^3/uL 0.00 - 0.00 [facility] MANUAL DIFF NOT INDICATED [facility] RBC MORPH NOT INDICATED [facility] Procedure Social History Code Duration Value Status Description Data Source(s ) Smoking 05/08/2021 12:00:00 AM EST Current Smoker completed [facility] Smoking 05/08/2021 12:00:00 AM EST Current Smoker completed Curre nt Smoker [facility] ([facility]) Smoking 05/08/2021 12:00:00 AM EST Current Smoker completed Curre nt Smoker eCW[facility] ([facility]) Vital Signs ID Date Data Source UNK Name Value Range Interpretation Code Description Data Source(s) Systolic blood pressure 132 mm[Hg] 132 mm[Hg] M [facility]ENT ([facility] [place]) Diastolic blood pressure 80 mm[Hg] 80 mm[Hg] [facility] ([facility] [place]) Heart rate 72 /min 72 /min [facility] Body temperature 98.0 [degF] 98.0 [degF] [facility] ([facility] [place]) Respiratory rate 16 /min 16 /min [facility] ( [facility] [place]) Oxygen saturation in Arterial blood by Pulse oximetry 98 % 98 % [facility] ([facility] [place]) Body weight 194.00 [lb_av] 194.00 [lb_av] MEDEN T ([facility] [place]) Body weight 87.998 kg 87.998 kg [facility] ([facility]) Body height 66 [in_i] 66 [in_i] [facility] ([facility]) 5'6" Body mass index (BMI) [Ratio] 31.3 kg/m2 31.3 k g/m2 [facility] ([facility] [place]) Body surface area Derived from formula 1.97 m2 1.97 m2 [facility] ([facility] [place]) Respiratory rate 18 /min 18 /min [facility] ( [facility] [place]) Oxygen saturation in Arterial blood by Pulse oximetry 98 % 98 % [facility] ([facility] [place]) Body weight 186.00 [lb_av] 186.00 [lb_av] MEDEN T ([facility] [place]) Systolic blood pressure 122 mm[Hg] 122 mm[Hg] M EDENT ([facility] [place]) Diastolic blood pressure 78 mm[Hg] 78 mm[Hg] [facility] ([facility] [place]) Heart rate 53 /min 53 /min [facility] ([facility]) Body temperature 99.0 [degF] 99.0 [degF] [facility] ([facility] [place]) Body weight 84.370 kg 84.370 kg [facility] ([facility]) Body height 66 [in_i] 66 [in_i] [facility] ([facility]) 5'6" Body mass index (BMI) [Ratio] 30.0 kg/m2 30.0 k g/m2 [facility] ([facility] [place]) Body surface area Derived from formula 1.94 m2 1.94 m[address] [facility] [place]) Diastolic blood pressure 70 mm[Hg] 70 mm[Hg] [facility] ([facility]) Body height 66 [in_i] 66 [in_i] [facility] ([facility]) Body mass index (BMI) [Ratio] 29.1 kg/m2 29.1 k g/m2 [facility] ([facility]) Systolic blood pressure 115 mm[Hg] 115 mm[Hg] A THENA ([facility]) Body weight 180 [lb_av] 180 [lb_av] [facility] ([facility]) Patient Treatment Plan of Care Planned Activity Planned Date Details Description Data Source (s) Phentermine Hydrochloride 37.5 MG Oral Capsule [facility] ([facility]) Escitalopram 10 MG Oral Tablet [Lexapro] [facility] ([facility]) Ibuprofen 600 MG Oral Tablet [facility] ([facility]) Hydroxyzine Hydrochloride 10 MG Oral Tablet [facility] ([facility]) chlorhexidine gluconate 1.2 MG/ML Mouthwash [facility] ([facility]) Amoxicillin 500 MG Oral Capsule [facility] ([facility])
--- NOTE | 2021-05-20 11:46 | REP ---
INDICATION: fall injury COMPARISON: None. TECHNIQUE: AP and lateral left humerus FINDINGS: The osseous structures and joint spaces are intact and normal. There is no evidence for acute fracture or dislocation. Surrounding soft tissues are unremarkable. No subcutaneous emphysema or radiodense foreign body. IMPRESSION: . No acute fracture or dislocation. <Electronically signed by Erik Williamson > 05/20/21 1956
--- OUTSIDE RECORDS SUMMARY | 2021-05-20 11:46 | CCD ---
Author Author [facility] Organization [facility] Address Unknown Phone Unavailable Care Team Providers Care Navigation Teacher Name Role Phone Nathalie Mueller MD Unavailable [...] Nathalie Mueller MD Unavailable Unavailable Bolla, S Neto BOND Unavailable [...] Unavailable MCKEON, MARY MD Unavailable Unavailable MCKEON, AMRY MD Unavailable Unavailable MCKEON, MARY MD Unavailable [...] is protected by Article 27-F of the [facility] Public Health law. If you continue you may have access to information: Regarding HIV / AIDS; Provided by facilities licensed or operated by the [facility] Office of Mental Health; or Provided by the [facility] Office for People With Developmental Disabilities. If such information is present, then the following [facility] mandated warning applies: This information has [...] law may result in a fine or senior living sentence or both. A general authorization for the release of medical or other information is NOT sufficient authorization for further disc losure. Allergies and Adverse Reactions Type Description Substance Reaction Status Data Source(s ) No Known Drug Allergies No Known Drug Allergies [facility] Family History Family Member Name Family Member Gender Family Member Status Date o f Status Description Data Source(s) Unknown Female Problem MEDENT ([facility]) Encounters Encounter Providers Location Date Indications Data Source(s ) [place] [address] [facility] [address] 05/10/2021 12:00:00 AM EST eCW1 ([facility]ly [facility]) [place] [address] [facility] [place] [address] 05/09/2021 12:00:00 AM EST eCW1 ([facility]) [place] [address] [facility] [address] 05/09/2021 12:00:00 AM EST eCW1 ([facility]) Outpatient Attender: MARY MCKEON MDConsultant: MARY Oneill MD 07/25/2020 10:32:00 AM EST - 07/25/2020 10:32:00 AM EST [facility] Outpatient Attender: MARY MCKEON MD Family Practice 07/25/2020 0 9:20:00 AM EST MEDENT ([facility]) Outpatient Attender: MARY MCKEON MDConsultant: MARY Oneill MD 06/19/2020 03:15:00 PM EST - 06/19/2020 03:15:00 PM EST [facility] Neto Mueller MD: [id number] [address], [facility] [place] [address], Ph. Attender: Neto Mueller MD [place] - [facility] - Main Office 04/16/2020 12:00:00 AM EST HENRY ([facility]) Medications Medication Brand Name Start Date Product [...] 12:00:00 AM EST ORAL active M EDENT ([facility]) Cyclobenzaprine hydrochloride 5 MG Oral Tablet CYCLOBENZAPRI [...] 06/19/2020 12:00:00 AM EST ORAL completed MEDENT ([facility]) 100 mg 06/19/2020 12:00:00 AM EST [...] 10 MG Oral Tablet HENRY ([facility]) Phentermine Hydrochloride 37.5 MG Oral C apsule phentermine 37.5 mg capsule Take 1 capsule every day by oral route. phentermine 37.5 mg capsule Take 1 capsu le every day by oral route. 1 capsule(s) complet ed phentermine hydrochloride 37.5 MG Oral Capsule HENRY ([facility]) Amoxicillin 500 MG Oral Capsule amoxicillin 500 mg cap krystyna amoxicillin 500 mg capsule completed amoxicillin 50 0 MG Oral Capsule HENRY ([facility]) Ibuprofen 600 MG Oral Tablet ibuprofen 600 mg tablet ibuprofen 6 00 mg tablet completed ibuprofen 600 MG Oral Tablet HENRY ([facility]) Escitalopram 10 MG Oral Tablet [Lexapro] Lexapro 10 mg tablet Take 1 tablet every day by oral route. Lexapro 10 mg tablet Take 1 tablet every day by oral route. 1 completed escitalopram 10 MG Oral Tablet [Lexapro] HENRY ([facility]) chlorhexidine gluconate 1.2 MG/ML Mouthw [place] chlorhexidine gluconate 0.12 % mouthwash chlorhexidine gluconate 0.12 % mouthwash completed chlorhexidine gluconate 1.2 MG/ML Mouthwash HENRY ([facility]) Insurance Providers Payer name Policy type / Coverage type Policy ID Covered constitution party ID Covered constitution party's relationship to anton Policy Anton Plan Information [employer] COMMUNITY PLAN [facility] [id number] SP [id number] [facility] COMMUNTY PLAN [id number] 18 [id number] [employer] COMMUNITY PLAN XIX [id number] 18 [id number] [facility] O [id number] S [id number] [employer] COMMUNITY PLAN [facility] [id number] SP [id number] ANSI-Medicaid [id number] [facility] Commun[facility] Plan Medicaid [id number] [id number] Self [id number] [facility] Medicaid [id number] 0.3800.0 Self [id number] [facility] Medicaid [id number] [id number] Self [id number] HC COMMUNITY PLAN [id number] 18 [id number] [facility] Medicaid [id number] 0.3800.0 Self [id number] [facility] Medicaid [id number] 0.3800.0 Self [id number] [facility] Medicaid [id number] 0.3800.0 Self [id number] [facility] Medicaid [id number] 0.3800.0 Self [id number] [facility] Community Plan Medicaid [id number] Self [id number] [facility] Community Plan Medicaid [id number] Self [id number] [facility] Community Plan Medicaid 1680 Self [employer] AMERICHOICE XIX O [id number] 18 [id number] MEDICAID [id number] SP [id number] MEDICAID-PHYSICIAN [id number] 18 B [id number] [employer] AMERICHOICE XIX O [id number] 18 [id number] MEDICAID - CLINIC [id number] Problems, Conditions, and Diagnoses Code Display Name Description Problem Type Effective Dates Data Source(s) Z1389 Encounter for screening for other disord er Encounter for screening for other disorder Diagnosis 06/19/2020 03:15:[address] [facility] N946 Dysmenorrhea, unspecified Dysmenorrhea, unspecified Di agnosis 06/19/2020 03:15:[address] [facility] E282 Polycystic ovarian syndrome Polycystic ovarian syndrom e Diagnosis 06/19/2020 03:15:[address] [facility] G894 Chronic pain syndrome Chronic pain syndrome Diagnosis 06/19/2020 03:15:[address] 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 G89.29 [id number] Other chronic pain Problem 05/09/2021 12:00: 00 AM EST eCW1 ([facility]) [id number] Polycystic ovary syndrome Polycystic ovary syndrome Pr oblem 06/19/2020 12:00:00 AM EST MEDENT ([facility]) Surgeries/Procedures Procedure Description Date Indications Data Source(s) Brief Emotional/Behav Assessment W/ Scoring Doc Per Standard Inst 06/19/2020 12:00:00 AM EST MEDENT ([facility]) MRI, lumbar spine, w/o contrast 04/16/2020 12:00:00 AM EST HENRY ([facility]) Results ID Date Data Source [id number] 07/25/2020 11:06:00 AM EST MEDENT ([facility]) Name Value Range Interpretation Code Description Data Charisse rce(s) Supporting Document(s) C reactive protein [Mass/volume] in Serum or Plasma by High sensitivity method 1.67 mg/L 1.00-3.00 MEDENT ([facility]) Is patient fasting? N Thyrotropin [Units/volume] in Serum or Plasma 1.21 uIU/mL 0.47-5.01 MEDENT ([facility]) Is patient fasting? N ID Date Data Source [id number] 07/25/2020 11:06:00 AM EST MEDENT ([facility]) Name Value Range Interpretation Code Description Data [facility] rce(s) Supporting Document(s) Sed Rate Reenter 4 MEDENT ([facility]) Is patient fasting? N Sed Rate 4 mm/hr 0-20 MEDENT ([facility]) Is patient fasting? N ID Date Data Source [id number] 07/25/2020 11:06:00 AM EST MEDENT ([facility]) Name Value Range Interpretation Code Description [facility] Document(s) Comprehensive Metabo Laboratory test result MEDENT ([facility]) Is patient fasting? N Sodium 140 meq/L 134-153 MEDENT ([facility]) Is patient fasting? N Chloride 102 meq/L 98-107 MEDENT ([facility]) Is patient fasting? N Potassium 4.1 meq/L 3.6-5.0 MEDENT ([facility]) Is patient fasting? N BUN 13 mg/dL 7-21 MEDENT ([facility]) Is patient fasting? N Glucose 89 mg/dL 70-99 MED[facility] ([facility]) Is patient fasting? N Co2 25 meq/L 22-30 MED[facility] ([facility]) Is patient fasting? N Creatinine 0.6 mg/dL 0.7-1.5 Below low normal MEDENT ( [facility]) Is patient fasting? N BUN/Creat 22 8-27 MED[facility] ([facility]) Is patient fasting? N Albumin 4.5 g/dL 3.9-5.0 MED[facility] ([facility]) Is patient fasting? N Total Protein 7.6 g/dL 6.3-8.2 [facility] Is patient fasting? N Globulin 3.1 GM/DL 2.4-3.2 [facility] ([facility]) Is patient fasting? N A/G Ratio 1.5 0.8-2.0 [facility] ([facility]) Is patient fasting? N Calcium 9.3 mg/dL 8.4-10.2 MEDENT ([facility]) Is patient fasting? N Alkaline Phos 115 U/L 38-126 [facility] ([facility]) Is patient fasting? N Total Bili Laboratory test result 0.2-1.3 ME DENT ([facility]) Is patient fasting? N Sgot/Ast 44 U/L 5-40 Above high normal [facility] ([facility]) Is patient fasting? N SGPT/Alt 34 U/L 7-56 [facility] ([facility]) Is patient fasting? N Anion Gap 13.0 mmol/L 8.0-16.0 [facility] ([facility]) Is patient fasting? N Non-Aa GFR Laboratory test result MEDENT ([facility]) Is patient fasting? N Age 40 yrs [facility] ([facility]) Is patient fasting? N Afr Amer GFR Laboratory test result [facility] ([facility]) Is patient fasting? N ID Date Data Source [id number] 07/25/2020 11:06:00 AM EST MEDENT ([facility]) Name Value Range Interpretation Code Description Data Charisse rce(s) Supporting Document(s) CBC W/Automated Diff Laboratory test result MEDENT ([facility]) Is patient fasting? N WBC 7.5 10^3/uL 4.2-11.0 [facility] ([facility]) Is patient fasting? N RBC 4.58 10^6/uL 4.20-5.40 [facility] ([facility]) Is patient fasting? N Hemoglobin 14.4 g/dL 12.0-16.0 MEDENT ([facility]) Is patient fasting? N Hematocrit 42.9 % 37.0-47.0 MEDENT ([facility]) Is patient fasting? N MCV 93.7 fL 81.0-101 MED[facility] ([facility]) Is patient fasting? N MCH 31.4 pg 27.0-34.0 [facility] ([facility]) Is patient fasting? N MCHC 33.6 g/dL 31.0-36.0 [facility] ([facility]) Is patient fasting? N RDW 13.2 % 11.5-14.5 [facility] ([facility]) Is patient fasting? N Platelets 261 10^3/uL 150-450 MED[facility] ([facility]) Is patient fasting? N Neut 64.7 % 37.0-80.0 [facility] ([facility]) Is patient fasting? N MPV 11.3 fL 7.4-10.4 Above high normal MEDENT ([facility]) Is patient fasting? N [place] 7.1 % 3.0-8.0 [facility] ([facility]) Is patient fasting? N Lymph 26.0 % 25.0-40.0 [facility] ([facility]) Is patient fasting? N Baso 0.5 % 0.0-2.5 [facility] ([facility]) Is patient fasting? N Eos 1.3 % 0.0-7.0 MED[facility] ([facility]) Is patient fasting? N %NRBC 0.0 % 0.0-0.0 MED[facility] ([facility]) Is patient fasting? N %Ig 0.4 % 0.0-0.0 Above high normal MEDENT ([facility]) Is patient fasting? N #Neut 4.83 10^3/uL 2.00-6.90 MEDENT ([facility]) Is patient fasting? N #Lymph 1.94 10^3/uL 0.60-3.40 MEDENT ([facility]) Is patient fasting? N #[place] 0.53 10^3/uL 0.00-0.90 MED[facility] ([facility]) Is patient fasting? N #Eos 0.10 10^3/uL 0.00-0.70 MEDENT ([facility]) Is patient fasting? N #Ig 0.03 10^3/uL 0.00-0.10 MED[facility] ([facility]) Is patient fasting? N #Baso 0.04 10^3/uL 0.00-0.20 MEDENT ([facility]) Is patient fasting? N #NRBC 0.00 10^3/uL 0.00-0.00 MEDENT ([facility]) Is patient fasting? N Manual Diff Laboratory test result M EDENT ([facility]) Is patient fasting? N RBC Morph Laboratory test result MEDENT ([facility]) Is patient fasting? N ID Date Data Source [id number] 07/25/2020 08:42:00 PM EST [facility] Name Value Range Interpretation Code Description Data Charisse rce(s) Supporting Document(s) Erythrocyte sedimentation rate by Westergren method 4 mm/hr 0 - 20 [facility] SED RATE REENTER 4 [facility] ID Date Data Source [id number] 07/25/2020 11:06:00 AM EST MEDENT ([facility]) Name Value Range Interpretation Code Description Data Charisse rce(s) Supporting Document(s) C reactive protein [Mass/volume] in Serum or Plasma by High sensitivity method Laboratory test result MEDENT ([facility]) Erythrocyte sedimentation rate by Westergren method Laboratory test result MEDENT ([facility]) Thyrotropin [Units/volume] in Serum or Plasma Laboratory test result MEDENT ([facility]) ID Date Data Source [id number] 07/25/2020 02:38:00 PM EST [facility] Name Value Range Interpretation Code Description Data Charisse rce(s) Supporting Document(s) COMPREHENSIVE METABOLIC PANEL [facility] COMPREHENSIVE METABOLIC PANEL Sodium [Moles/volume] in Serum or Plasma 140 mEq/L 134 - 153 [facility] Potassium [Moles/volume] in Serum or Plasma 4.1 mEq/L 3.6 - 5.0 [facility] Chloride [Moles/volume] in Serum or Plasma 102 mEq/L 98 - 107 [facility] Carbon dioxide, total [Moles/volume] in Serum or Plasma 25 MEQ/L 22 - 30 [facility] Glucose [Mass/volume] in Serum or Plasma 89 MG/DL 70 - 99 [facility] BUN 13 MG/DL 7 - 21 [facility] Creatinine [Mass/volume] in Serum or Plasma 0.6 MG/DL 0.7 - 1.5 L [facility] BUN/CREAT 22 8 - 27 [facility] Protein [Mass/volume] in Serum or Plasma 7.6 G/DL 6.3 - 8.2 [facility] Albumin [Mass/volume] in Serum or Plasma 4.5 G/DL 3.9 - 5.0 [facility] Globulin [Mass/volume] in Serum by calculation 3.1 GM/DL 2.4 - 3.2 [facility] A/G RATIO 1.5 0.8 - 2.0 [facility] Calcium [Mass/volume] in Serum or Plasma 9.3 MG/DL 8.4 - 10.2 [facility] Bilirubin.total [Mass/volume] in Serum or Plasma <0.7 MG/DL 0.2 - 1.3 [facility] Alkaline phosphatase [Enzymatic activity/volume] in Serum or Plasma 115 U/L 38 - 126 [facility] Aspartate aminotransferase [Enzymatic activity/volume] in Serum or Plasma 44 U/L 5 - 40 H [facility] Alanine aminotransferase [Enzymatic activity/volume] in Seru m or Plasma 34 U/L 7 - 56 [facility] Anion gap 3 in Serum or Plasma 13.0 mmol/L 8.0 - 16.0 [facility] AGE 40 yrs [facility] NON-AA GFR >60 mL/min [facility] ital AFR AMER GFR >60 mL/min [facility] Male GFR In terprentation [...] >32 mL/min Normal ID Date Data Source [id number] 07/25/2020 02:34:00 PM EST [facility] Name Value Range Interpretation Code Description Data Charisse rce(s) Supporting Document(s) Thyrotropin [Units/volume] in Serum or Plasma by Detec tion limit <= 0.05 mIU/L 1.21 uIU/mL 0.47 - 5.01 [facility] ID Date Data Source [id number] 07/25/2020 02:32:00 PM EST [facility] Name Value Range Interpretation Code Description Data Charisse rce(s) Supporting Document(s) C reactive protein [Mass/volume] in Serum or Plasma by High sensitivity method 1.67 MG/L 1.00 - 3.00 [facility] CDC/[facility] HS-CRP CUT-OFF: RELATIVE RISK: <1.0 mg/L Low 1.0 - 3.0 mg/L Average >3.0 mg/L High Optimally, the average of HS-CRP results repeated two weeks apart should be used for risk assessment. ID Date Data Source [id number] 07/25/2020 01:46:00 PM EST [facility] Name Value Range Interpretation Code Description Data Charisse rce(s) Supporting Document(s) CBC W/AUTOMATED DIFF [facility] COMPLETE BLOOD COUNT Leukocytes [#/volume] in Blood by Automated count 7.5 10^3/uL 4.2 - 1 1.0 [facility] Erythrocytes [#/volume] in Blood by Automated count 4.58 10^6/uL 4. 20 - 5.40 [facility] Hemoglobin [Mass/volume] in Blood 14.4 g/dL 12.0 - 16.0 [facility] Hematocrit [Volume Fraction] of Blood by Automated count 42.9 % 3 7.0 - 47.0 [facility] Erythrocyte mean corpuscular volume [Entitic volume] by Auto mated count 93.7 fL 81.0 - 101 [facility] Erythrocyte mean corpuscular hemoglobin [Entitic mass] by Automated count 31.4 pg 27.0 - 34.0 [facility] Erythrocyte mean corpuscular hemoglobin concentration [Mass/volume] by Automated count 33.6 g/dL 31.0 - 36.0 [facility] Erythrocyte distribution width [Ratio] by Automated count 13.2 % 11.5 - 14.5 [facility] Platelets [#/volume] in Blood by Automated count 261 10^3/uL 150 - 45 0 [facility] Platelet mean volume [Entitic volume] in Blood by Automated count 11.3 fL 7.4 - 10.4 H [facility] Neutrophils/100 leukocytes in Blood by Automated count 64.7 % 37. 0 - 80.0 [facility] Lymphocytes/100 leukocytes in Blood by Manual count 26.0 % 25.0 - 40.0 [facility] Monocytes/100 leukocytes in Blood by Automated count 7.1 % 3.0 - 8.0 [facility] Eosinophils/100 leukocytes in Blood by Automated count 1.3 % 0.0 - 7.0 [facility] Basophils/100 leukocytes in Blood by Automated count 0.5 % 0.0 - 2.5 [facility] %IG 0.4 % 0.0 - 0.0 [facility] %NRBC 0.0 % 0.0 - 0.0 [facility] al Neutrophils [#/volume] in Blood by Automated count 4.83 10^3/uL 2.00 - 6.90 [facility] Lymphocytes [#/volume] in Blood by Automated count 1.94 10^3/uL 0.60 - 3.40 [facility] Monocytes [#/volume] in Blood by Automated count 0.53 10^3/uL 0.00 - 0.90 [facility] Eosinophils [#/volume] in Blood by Automated count 0.10 10^3/uL 0.00 - 0.70 [facility] Basophils [#/volume] in Blood by Automated count 0.04 10^3/uL 0.00 - 0.20 [facility] #IG 0.03 10^3/uL 0.00 - 0.10 [facility] #NRBC 0.00 10^3/uL 0.00 - 0.00 [facility] MANUAL DIFF NOT INDICATED [facility] RBC MORPH NOT INDICATED [facility] Procedure Social History Code Duration Value Status Description Data Source(s ) Smoking 05/08/2021 12:00:00 AM EST Current Smoker completed Curre nt Smoker eCW1 ([facility]) Smoking 05/08/2021 12:00:00 AM EST Current Smoker completed Curre nt Smoker eCW1 ([facility]) Smoking 05/08/2021 12:00:00 AM EST Current Smoker completed Curre nt Smoker eCW1 ([facility]) Vital Signs ID Date Data Source UNK Name Value Range Interpretation Code Description Data Source(s) Systolic blood pressure 132 mm[Hg] 132 mm[Hg] M EDENT ([facility]) Diastolic blood pressure 80 mm[Hg] 80 mm[Hg] MEDENT ([facility]) Heart rate 72 /min 72 /min [facility] ([facility]) Body temperature 98.0 [degF] 98.0 [degF] [facility] ([facility]) Respiratory rate 16 /min 16 /min [facility] ( [facility]) Oxygen saturation in Arterial blood by Pulse oximetry 98 % 98 % [facility] ([facility]) Body weight 194.00 [lb_av] 194.00 [lb_av] MEDEN T ([facility]) Body weight 87.[address] [facility] ([facility]) Body height 66 [in_i] 66 [in_i] [facility] ([facility]) 5'6" Body mass index (BMI) [Ratio] 31.3 kg/m2 31.3 k g/m2 [facility] ([facility]) Body surface area Derived from formula 1.[address] [facility] ([facility]) Respiratory rate 18 /min 18 /min [facility] ( [facility]) Oxygen saturation in Arterial blood by Pulse oximetry 98 % 98 % [facility] ([facility]) Body weight 186.00 [lb_av] 186.00 [lb_av] MEDEN T ([facility]) Systolic blood pressure 122 mm[Hg] 122 mm[Hg] M EDENT ([facility]) Diastolic blood pressure 78 mm[Hg] 78 mm[Hg] MEDENT ([facility]) Heart rate 53 /min 53 /min MED[facility] ([facility]) Body temperature 99.0 [degF] 99.0 [degF] MEDENT ([facility]) Body weight 84.370 kg 84.370 kg MEDENT ([facility]) Body height 66 [in_i] 66 [in_i] MEDENT ([facility]) 5'6" Body mass index (BMI) [Ratio] 30.0 kg/m2 30.0 k g/m2 MEDENT ([facility]) Body surface area Derived from formula 1.94 m2 1.94 m2 [facility] ([facility]) Diastolic blood pressure 70 mm[Hg] 70 mm[Hg] HENRY ([facility]) Body height 66 [in_i] 66 [in_i] [facility]ENRY ([facility]) Body mass index (BMI) [Ratio] 29.1 kg/m2 29.1 k g/m2 [facility]RY ([facility]) Systolic blood pressure 115 mm[Hg] 115 mm[Hg] A THENA ([facility]) Body weight 180 [lb_av] 180 [lb_av] [facility]RY ([facility]) Patient Treatment Plan of Care Planned Activity Planned Date Details Description Data Source (s) Phentermine Hydrochloride 37.5 MG Oral Capsule HENRY ([facility]) Escitalopram 10 MG Oral Tablet [Lexapro] HENRY ([facility]) Ibuprofen 600 MG Oral Tablet H[facility]RY ([facility]) Hydroxyzine Hydrochloride 10 MG Oral Tablet HENRY ([facility]) chlorhexidine gluconate 1.2 MG/ML Mouthwash HENRY ([facility]) Amoxicillin 500 MG Oral Capsule HENRY ([facility])
--- NOTE | 2021-05-20 11:47 | REP ---
INDICATION: fall injury COMPARISON: None. TECHNIQUE: AP and lateral left forearm FINDINGS: The osseous structures and joint spaces are intact and normal. There is no evidence for acute fracture or dislocation. Surrounding soft tissues are unremarkable. No subcutaneous emphysema or radiodense foreign body. IMPRESSION: . No acute fracture or dislocation. <Electronically signed by Erik Williamson > 05/20/21 [id number]
--- NOTE | 2021-05-20 11:48 | REP ---
INDICATION: fall injury, hit thumb with hammer COMPARISON: None. TECHNIQUE: AP, lateral, bilateral oblique views left 1st digit. FINDINGS: The osseous structures and joint spaces are intact and normal. There is no evidence for acute fracture or dislocation. Surrounding soft tissues are unremarkable. No subcutaneous emphysema or radiodense foreign body. IMPRESSION: No obvious acute fracture or dislocation. <Electronically signed by Erik Williamson > 05/20/21 [id number]
[2021-05-20] MEDS ORDERED: ACETAMINOPHEN 500 MG TAB PO ONE (12:05)
[2021-05-20 12:35] VITALS: BP 142/78
== END 2021-05-20 13:01 | disposition home or self-care (01) ==
LOC: M ED 10:38
DX: M79.645 Pain in left finger(s) (principal); M25.522 Pain in left elbow; F17.210 Nicotine dependence, cigarettes, uncomplicated

== ENCOUNTER 2021-06-03 12:18 | Outpatient (RCR) | payer OTHER | END 2021-06-07 | LOC: M PT 12:18 | PROVIDERS: ATTEND Family Medicine | DX: M54.89 Other dorsalgia (principal) ==

== ENCOUNTER 2021-07-04 13:41 | Outpatient (RCR) | payer OTHER | END 2021-07-08 | LOC: M PT 13:41 | PROVIDERS: ATTEND Family Medicine | DX: M54.50 Low back pain, unspecified (principal) ==

== ENCOUNTER 2021-07-31 08:38 | Outpatient (RCR) | payer OTHER | END 2021-08-05 | LOC: M PT 08:38 | PROVIDERS: ATTEND Family Medicine | DX: M54.50 Low back pain, unspecified (principal) ==

== ENCOUNTER → 2021-07-31 | Outpatient (CLI) | payer OTHER | LOC: M PAIN 11:15 | PROVIDERS: ATTEND Anesthesiology | DX: M47.816 Spondylosis without myelopathy or radiculopathy, lumbar region (principal); E66.9 Obesity, unspecified; G89.4 Chronic pain syndrome; N97.0 Female infertility associated with anovulation; F17.210 Nicotine dependence, cigarettes, uncomplicated; Z68.31 Body mass index [BMI] 31.0-31.9, adult ==

== ENCOUNTER 2022-01-06 11:45 | Emergency (ER) | payer OTHER ==
[~2022-01-06] VITALS: Ht 167.6 cm; Wt 87.2 kg
[2022-01-06] MEDS ORDERED: FAMOTIDINE 20MG/2ML VIAL IVP ONE (11:55)
[2022-01-06] MEDS ORDERED: methylPREDNISolone 125MG 2ML VIAL IV ONE (11:55)
[2022-01-06] MEDS ORDERED: diphenhydrAMINE 50MG/ML VIAL (J1200) IV STA (11:55)
[2022-01-06] MEDS ORDERED: PRED20TA PO (12:35)
[2022-01-06] MEDS ORDERED: BENA25CA4 PO (12:36)
[2022-01-06 13:14] VITALS: BP 128/72
== END 2022-01-06 13:16 | disposition home or self-care (01) ==
LOC: M ED 11:45
DX: L50.9 Urticaria, unspecified (principal); E28.2 Polycystic ovarian syndrome; G89.29 Other chronic pain; F17.210 Nicotine dependence, cigarettes, uncomplicated
CPT/HCPCS: 96374; 96375; 99284; J1200; J2930

== ENCOUNTER 2023-09-04 09:37 | Emergency (ER) | payer OTHER, SELFPAY ==
[~2023-09-04] VITALS: Ht 167.6 cm; Wt 86.7 kg
[~2023-09-04 09:37] MED LIST changes: +BENA25CA4 PO; +PRED20TA PO
[2023-09-04 11:34] LABS: BASO % 0.5 % (0.0-1.0); EOS # 0.1 10^3/uL (0.0-0.5); HEMATOCRIT 40.9 % (36.0-47.0); HEMOGLOBIN 13.6 g/dl (12.0-15.5); MEAN CORPUSCULAR HEMOGLOBIN 30.9 pg (27.0-33.0); MEAN CORPUSCULAR HGB CONC 33.3 g/dl (32.0-36.5); MONO # 0.5 10^3/uL (0.0-0.8); MONO % 6.9 % (2.0-8.0); NEUTROPHILS # 5.1 10^3/uL (1.5-8.5); NEUTROPHILS % 65.3 % (36.0-66.0); PLATELET COUNT, AUTOMATED 238 10^3/uL (150-450); WHITE BLOOD COUNT 7.7 10^3/uL (4.0-10.0)
[2023-09-04 12:02] LABS: BLOOD UREA NITROGEN 15 MG/DL (9-23); CALCIUM LEVEL 9.3 MG/DL (8.5-10.1); CARBON DIOXIDE LEVEL 29 MMOL/L (20-31); CHLORIDE LEVEL 105 MMOL/L (98-107); CREATININE FOR GFR 0.59 MG/DL (0.55-1.30); GLOMERULAR FILTRATION RATE > 60.0 (>58); GLUCOSE, FASTING 85 MG/DL (60-100); MAGNESIUM LEVEL 1.7 MG/DL (1.8-2.4); POTASSIUM SERUM 4.7 MMOL/L (3.5-5.1); SODIUM LEVEL 139 MMOL/L (136-145)
[2023-09-04 12:03] LABS: CK-MB VALUE MASS < 1.0 NG/ML (<3.6)
[2023-09-04 12:07] LABS: THYROID STIMULATING HORMONE 0.393 uIU/ML (0.55-4.78)
[2023-09-04 12:09] LABS: FREE THYROXINE INDEX 2.2 % (1.3-4.8); T UPTAKE 31.5 % (22.5-37.0)
[2023-09-04 12:10] LABS: CPK CREATINE PHOSPHOKINASE 93 U/L (34-145); MB/CK RELATIVE INDEX 1.07 (< OR =4)
[2023-09-04 12:53] VITALS: BP 114/62; TEMP 97.6; O2SAT 100
[2023-09-04 13:18] LABS: CK-MB VALUE MASS < 1.0 NG/ML (<3.6)
[2023-09-04 13:19] LABS: CPK CREATINE PHOSPHOKINASE 79 U/L (34-145); MB/CK RELATIVE INDEX 1.26 (< OR =4)
== END 2023-09-04 13:25 | disposition home or self-care (01) ==
LOC: M ED 10:59
DX: R00.2 Palpitations (principal)

== ENCOUNTER 2024-03-06 03:46 | Emergency (ER) | payer OTHER, SELFPAY ==
[~2024-03-06] VITALS: Ht 167.6 cm; Wt 86.0 kg
[2024-03-06] MEDS: FAMOTIDINE 20MG/2ML VIAL IVP ONE (05:16)
[2024-03-06] MEDS: NS 1,000 ML IV ONE (05:16)
[2024-03-06] MEDS: methylPREDNISolone 125MG 2ML VIAL IV ONE (05:16)
[2024-03-06] MEDS ORDERED: PRED20TA PO (06:26)
[2024-03-06] MEDS ORDERED: CETI-113 PO (06:28)
[2024-03-06] MEDS ORDERED: PEPC1TAB5 PO (06:28)
[2024-03-06 06:49] VITALS: BP 130/78; TEMP 96.9; O2SAT 99
== END 2024-03-06 06:44 | disposition home or self-care (01) ==
LOC: M ED 03:46
DX: R22.43 Localized swelling, mass and lump, lower limb, bilateral (principal); T63.441A Toxic effect of venom of bees, accidental (unintentional), initial encounter; E28.2 Polycystic ovarian syndrome; Z91.030 Bee allergy status
CPT/HCPCS: 96361; 96374; 96375; 99284; J2919; S0028

== ENCOUNTER 2025-03-25 07:45 | Emergency (ER) | payer OTHER ==
[~2025-03-25] VITALS: Ht 167.6 cm; Wt 85.5 kg
[~2025-03-25 07:45] MED LIST changes: +CETI-113 PO; +PEPC1TAB5 PO
[2025-03-25 07:46] VITALS: TEMP 97.6
[2025-03-25] MEDS ORDERED: EPIN0.3I11 (07:49)
[2025-03-25] MEDS ORDERED: HYDR-643 (07:49)
[2025-03-25] MEDS: ASPIRIN 81 MG CHEWABLE TABLET PO ONE (08:46)
[2025-03-25] MEDS: HYOSCYAMINE SULFATE 0.125 MG SUBL TABLET PO ONE (08:46)
[2025-03-25] MEDS: LIDOCAINE VISCOUS 2% SOLN 15 ML UDC PO ONE (08:46)
[2025-03-25] MEDS: MAALOX 30 ML SUSP *UDC PO ONE (08:46)
[2025-03-25 09:16] LABS: BASO # 0.0 10^3/uL (0.0-0.2); BASO % 0.4 % (0.0-1.0); EOS # 0.1 10^3/uL (0.0-0.5); EOS % 0.8 % (0.0-3.0); LYMPH # 1.4 10^3/uL (1.5-5.0); LYMPH % 19.7 % (24.0-44.0); MONO # 0.7 10^3/uL (0.0-0.8); MONO % 9.3 % (2.0-8.0); NEUTROPHILS # 4.9 10^3/uL (1.5-8.5); NEUTROPHILS % 69.7 % (36.0-66.0); PLATELET COUNT, AUTOMATED 231 10^3/uL (150-450)
[2025-03-25] MEDS ORDERED: SUCR1SS PO (09:17)
[2025-03-25 09:24] LABS: ALT/SGPT 31 U/L (7.0-40); AST/SGOT 33 U/L (<34); CALCIUM LEVEL 8.9 MG/DL (8.5-10.1); CARBON DIOXIDE LEVEL 27 MMOL/L (20-31); CHLORIDE LEVEL 102 MMOL/L (98-107); CPK CREATINE PHOSPHOKINASE 69 U/L (34-145); CREATININE FOR GFR 0.65 MG/DL (0.55-1.30); GLOMERULAR FILTRATION RATE > 90.0 (>58); POTASSIUM SERUM 3.4 MMOL/L (3.5-5.1); SODIUM LEVEL 140 MMOL/L (136-145)
[2025-03-25 09:25] LABS: CK-MB VALUE MASS 1.0 NG/ML (<3.6); MB/CK RELATIVE INDEX 1.44 (< OR =4)
[2025-03-25 09:28] LABS: FREE T4 1.04 NG/DL (0.89-1.76)
[2025-03-25 09:30] LABS: HCG, SERUM QUALITATIVE NEGATIVE (NEGATIVE)
[2025-03-25 10:07] LABS: CK-MB VALUE MASS 1.0 NG/ML (<3.6)
[2025-03-25 10:10] LABS: CPK CREATINE PHOSPHOKINASE 66 U/L (34-145); MB/CK RELATIVE INDEX 1.51 (< OR =4)
[2025-03-25 10:15] VITALS: BP 114/65; O2SAT 97
== END 2025-03-25 10:20 | disposition home or self-care (01) ==
LOC: M ED 07:45
DX: R07.89 Other chest pain (principal); Z91.030 Bee allergy status